=== PATIENT | female | born 1970 | race Caucasian/White ===

== ENCOUNTER 2018-12-30 10:14 | Inpatient (IN) ==
[2018-12-30] MEDS ORDERED: Albuterol 2.5 MG/3 ML NEBULIZER IH PRN (10:28)
[2018-12-30] MEDS ORDERED: CeFAZolin Syr 2,000MG/20 ML 2,000 MG/20 ML SYRINGE IVPB ONE (10:28)
[2018-12-30] MEDS ORDERED: Ringers Solution, Lactated 1,000 ML IVC SCH ×2 (10:30→15:21)
[2018-12-30] MEDS ORDERED: *HR* FentaNYL (PF) 100 MCG/2 ML VIAL ONE (10:58)
[2018-12-30] MEDS ORDERED: *HR* Midazolam HCl 2 MG/2 ML VIAL ONE (10:59)
[2018-12-30] MEDS ORDERED: Celecoxib 200 MG CAPSULE PO ONE (11:05)
[2018-12-30] MEDS ORDERED: Gabapentin 300 MG CAPSULE PO ONE (11:05)
[2018-12-30] MEDS ORDERED: *HR* OxyCODONE Immed Rel 5 MG TABLET PO PRN (11:11)
[2018-12-30] MEDS ORDERED: Ondansetron 4 MG/2 ML VIAL IVP ONE (11:11)
[2018-12-30] MEDS ORDERED: *HR* Promethazine 25 MG/ML VIAL IVP PRN ×2 (11:11→15:21)
[2018-12-30] MEDS ORDERED: Ropivacaine/PF 0.5% 30 ML VIAL ONE (11:27)
[2018-12-30] MEDS ORDERED: Ethanol\\Acetic Acid\\Na Ace\\Ben 1,000 ML IRRIG.SOLN IR ONE (11:36)
[2018-12-30] MEDS ORDERED: Tranexamic Acid 1,000 MG/10 ML VIAL ONE (12:39)
[2018-12-30] MEDS ORDERED: Propofol 500 MG/50 ML INFUS..BTL ONE (12:40)
[2018-12-30] MEDS ORDERED: Dexamethasone 4 MG/ML VIAL ONE (12:49)
[2018-12-30] MEDS ORDERED: Ondansetron 4 MG/2 ML VIAL ONE (12:49)
[2018-12-30] MEDS: *HR* HYDROmorphone (PF) 1 MG/ML SYRINGE IVP PRN ×2 (14:10→14:17)
[2018-12-30 14:41] LABS: Hemoglobin 11.4 g/dL (11.5-15.4)
[2018-12-30] MEDS ORDERED: Ipratropium/Albuterol Neb 3 ML IH PRN (15:21)
[2018-12-30] MEDS ORDERED: Temazepam 15 MG CAPSULE PO PRN (15:21)
[2018-12-30] MEDS ORDERED: Fluticasone Propionate Nasal 50 MCG/SPRAY BOTTLE NS PRN (15:21)
[2018-12-30] MEDS ORDERED: MOM Conc 10 ML UD.LIQ PO PRN (15:21)
[2018-12-30] MEDS ORDERED: Sennosides 8.6 MG TABLET PO PRN (15:21)
[2018-12-30] MEDS ORDERED: traZODone 50 MG TABLET PO PRN (15:21)
[2018-12-30] MEDS ORDERED: Naloxone 0.4 MG/ML INJ IVP PRN (15:21)
[2018-12-30] MEDS ORDERED: Ondansetron 4 MG/2 ML VIAL IVP PRN (15:21)
[2018-12-30] MEDS ORDERED: traMADol 50 MG TABLET PO PRN (15:21)
[2018-12-30] MEDS: HYDROcodone BIT/Homatropine 5 MG TABLET PO PRN (16:33)
[2018-12-30] MEDS: Ascorbic Acid 500 MG TABLET PO SCH (16:35)
[2018-12-30] MEDS ORDERED: ARIPiprazole 10 MG TABLET PO SCH (18:00)
[2018-12-30] MEDS ORDERED: Loratadine 10 MG TABLET PO SCH (18:00)
[2018-12-30] MEDS: Gabapentin 300 MG CAPSULE PO SCH ×2 (18:13→21:31)
[2018-12-30] MEDS: *HR* OxyCODONE Immed Rel 5 MG TABLET PO PRN (21:30)
[2018-12-30] MEDS: Budesonide/Formoterol 160/4.5 1 PUFF INH IH SCH (21:38)
[2018-12-31] MEDS: *HR* OxyCODONE Immed Rel 5 MG TABLET PO PRN ×2 (02:22→08:49)
[2018-12-31] MEDS: HYDROcodone BIT/Homatropine 5 MG TABLET PO PRN ×2 (05:08→10:59)
[2018-12-31 05:23] LABS: Basophils % 0.1 %; Hematocrit 29.7 % (35.3-44.9); Hemoglobin 10.1 g/dL (11.5-15.4); Immature Granulocytes % 0.3 % (0-4); Lymphocytes # 0.9 K/mcL (0.6-4.6); Lymphocytes % 8.3 %; Mean Corpuscular Hemoglobin 32.2 pg (28.0-33.3); Mean Corpuscular Volume 94.6 fL (83.0-100.0); Mean Platelet Volume 9.1 fL (9.4-12.4); Monocytes # 0.7 K/mcL (0.0-1.3); Monocytes % 6.1 %; Neutrophils # 9.2 K/mcL (1.6-8.9); Platelet Count 289 K/mcL (140-400); Red Blood Count 3.14 M/mcL (3.82-4.97); Red Cell Distribution Width 15.3 % (11.5-14.5); Segmented Neutrophils % 85.2 %; White Blood Count 10.7 K/mcL (4.3-11.1)
[2018-12-31 05:43] LABS: BUN/Creatinine Ratio 11 (6-26); Blood Urea Nitrogen 7 mg/dL (6-20); Calcium 8.7 mg/dL (8.6-10.3); Carbon Dioxide 28 mEq/L (23-29); Chloride 107 mEq/L (98-107); Glucose 135 mg/dL (70-105); Osmolality,Calculated 298 (280-300); Potassium 2.9 mEq/L (3.5-5.1); Sodium 144 mEq/L (136-145); eGFR For African Americans > 60 (> 60); eGFR For Non-African Americans > 60 (> 60)
[2018-12-31] MEDS ORDERED: *HR* Enoxaparin 30 MG/0.3 ML SYRINGE SQ SCH ×2 (06:00→11:13)
[2018-12-31] MEDS: Gabapentin 300 MG CAPSULE PO SCH (08:49)
[2018-12-31] MEDS: Ascorbic Acid 500 MG TABLET PO SCH (08:49)
[2018-12-31] MEDS ORDERED: hydroCHLOROthiazide 25 MG TABLET PO SCH (09:00)
[2018-12-31] MEDS ORDERED: Multivit/Ca/Min/Fe/FA 1 TAB TABLET PO SCH (09:00)
[2018-12-31] MEDS ORDERED: Tiotropium 18 MCG inhalation IH SCH (10:00)
[2018-12-31] MEDS: Budesonide/Formoterol 160/4.5 1 PUFF INH IH SCH (10:31)
[2018-12-31 10:59] VITALS: BP 126/74
== END 2018-12-31 12:35 | disposition home or self-care (01) | DRG 301 ==
LOC: SAMDAY 10:14 → 3NENU 15:18
PROVIDERS: ADMIT Orthopaedic Surgery; ATTEND Orthopaedic Surgery

== ENCOUNTER 2019-02-12 06:09 | Inpatient (IN) ==
[2019-02-12] MEDS ORDERED: Albuterol 2.5 MG/3 ML NEBULIZER IH PRN (06:22)
[2019-02-12] MEDS ORDERED: CeFAZolin Syr 2,000MG/20 ML 2,000 MG/20 ML SYRINGE IVPB ONE (06:22)
[2019-02-12] MEDS ORDERED: Ringers Solution, Lactated 1,000 ML IVC SCH ×2 (06:30→09:54)
[2019-02-12] MEDS ORDERED: Acetaminophen IV 1,000 MG/100 ML INFUS..BTL IVPB ONE (07:00)
[2019-02-12] MEDS ORDERED: *HR* Meperidine 25 MG/ML SYRINGE IVP PRN (07:00)
[2019-02-12] MEDS ORDERED: *HR* HYDROmorphone (PF) 1 MG/ML SYRINGE IVP PRN (07:00)
[2019-02-12] MEDS ORDERED: *HR* Promethazine 25 MG/ML VIAL IVP PRN ×2 (07:00→09:54)
[2019-02-12] MEDS ORDERED: *HR* FentaNYL (PF) 100 MCG/2 ML VIAL IVP PRN (07:00)
[2019-02-12] MEDS ORDERED: *HR* Midazolam HCl 2 MG/2 ML VIAL IVP PRN (07:00)
[2019-02-12] MEDS ORDERED: *HR* OxyCODONE Immed Rel 5 MG TABLET PO PRN (07:00)
[2019-02-12] MEDS ORDERED: Propofol 500 MG/50 ML INFUS..BTL ONE (07:03)
[2019-02-12] MEDS ORDERED: Lidocaine -MPF 2% 2 ML VIAL ONE (07:03)
[2019-02-12] MEDS ORDERED: Ethanol\\Acetic Acid\\Na Ace\\Ben 1,000 ML IRRIG.SOLN IR ONE (07:22)
[2019-02-12] MEDS ORDERED: EPHEDrine 50 MG/ML VIAL ONE (08:17)
[2019-02-12] MEDS ORDERED: Tranexamic Acid 1,000 MG/10 ML VIAL ONE (08:17)
[2019-02-12] MEDS ORDERED: *HR* PHENYLEPHRINE 1,000 MCG/10 ML SYRINGE IVP ONE (08:28)
[2019-02-12 09:29] LABS: Hemoglobin 10.3 g/dL (11.5-15.4)
[2019-02-12] MEDS ORDERED: traZODone 50 MG TABLET PO PRN (09:54)
[2019-02-12] MEDS ORDERED: Fluticasone Propionate Nasal 50 MCG/SPRAY BOTTLE NS PRN (09:54)
[2019-02-12] MEDS ORDERED: Temazepam 15 MG CAPSULE PO PRN (09:54)
[2019-02-12] MEDS ORDERED: Ondansetron 4 MG/2 ML VIAL IVP PRN (09:54)
[2019-02-12] MEDS ORDERED: Sennosides 8.6 MG TABLET PO PRN (09:54)
[2019-02-12] MEDS ORDERED: MOM Conc 10 ML UD.LIQ PO PRN (09:54)
[2019-02-12] MEDS ORDERED: hydrOXYzine pamoate 25 MG CAPSULE PO PRN (09:54)
[2019-02-12] MEDS ORDERED: Naloxone 0.4 MG/ML INJ IVP PRN (09:54)
[2019-02-12] MEDS: Gabapentin 300 MG CAPSULE PO SCH ×3 (10:24→21:00)
[2019-02-12] MEDS: HYDROcodone BIT/Homatropine 5 MG TABLET PO PRN ×3 (10:24→21:02)
[2019-02-12] MEDS: Multivit/Ca/Min/Fe/FA 1 TAB TABLET PO SCH (10:24)
[2019-02-12] MEDS: hydroCHLOROthiazide 25 MG TABLET PO SCH (10:25)
[2019-02-12] MEDS: Ketorolac 30 MG/ML VIAL IVP SCH ×2 (12:02→17:19)
[2019-02-12] MEDS: Acetaminophen IV 1,000 MG/100 ML INFUS..BTL IVPB SCH ×2 (13:05→17:18)
[2019-02-12] MEDS: *HR* OxyCODONE Immed Rel 5 MG TABLET PO PRN ×2 (13:05→18:18)
[2019-02-12] MEDS: Nicotine 14 MG PATCH.TD24 TD SCH (14:38)
[2019-02-12] MEDS ORDERED: Ipratropium/Albuterol Neb 3 ML IH PRN (16:00)
[2019-02-12] MEDS: Ascorbic Acid 500 MG TABLET PO SCH (17:19)
[2019-02-12] MEDS ORDERED: ARIPiprazole 10 MG TABLET PO SCH (18:00)
[2019-02-12] MEDS ORDERED: Loratadine 10 MG TABLET PO SCH (18:00)
[2019-02-12] MEDS: Budesonide/Formoterol 160/4.5 1 PUFF INH IH SCH (23:11)
[2019-02-13] MEDS: Acetaminophen IV 1,000 MG/100 ML INFUS..BTL IVPB SCH (00:28)
[2019-02-13] MEDS: Ketorolac 30 MG/ML VIAL IVP SCH (00:28)
[2019-02-13] MEDS: *HR* OxyCODONE Immed Rel 5 MG TABLET PO PRN ×3 (00:40→14:27)
[2019-02-13] MEDS: HYDROcodone BIT/Homatropine 5 MG TABLET PO PRN ×2 (03:53→12:47)
[2019-02-13 07:04] LABS: Basophils % 0.5 %; Eosinophils # 0.3 K/mcL (0.0-0.6); Eosinophils % 4.3 %; Hematocrit 30.5 % (35.3-44.9); Hemoglobin 9.7 g/dL (11.5-15.4); Immature Granulocytes % 0.2 % (0-4); Lymphocytes % 31.1 %; Mean Corpuscular HGB Conc 31.8 g/dL (31.6-35.5); Mean Corpuscular Hemoglobin 31.3 pg (28.0-33.3); Mean Corpuscular Volume 98.4 fL (83.0-100.0); Mean Platelet Volume 9.6 fL (9.4-12.4); Monocytes # 0.5 K/mcL (0.0-1.3); Monocytes % 7.2 %; Neutrophils # 3.7 K/mcL (1.6-8.9); Platelet Count 276 K/mcL (140-400); Red Cell Distribution Width 14.2 % (11.5-14.5); Segmented Neutrophils % 56.7 %; White Blood Count 6.5 K/mcL (4.3-11.1)
[2019-02-13 07:24] LABS: BUN/Creatinine Ratio 9 (6-26); Blood Urea Nitrogen 7 mg/dL (6-20); Calcium 8.8 mg/dL (8.6-10.3); Carbon Dioxide 28 mEq/L (23-29); Chloride 105 mEq/L (98-107); Glucose 102 mg/dL (70-105); Osmolality,Calculated 290 (280-300); Potassium 3.2 mEq/L (3.5-5.1); Sodium 141 mEq/L (136-145); eGFR For African Americans > 60 (> 60); eGFR For Non-African Americans > 60 (> 60)
[2019-02-13] MEDS ORDERED: *HR* Enoxaparin 30 MG/0.3 ML SYRINGE SQ SCH (07:27)
[2019-02-13] MEDS: Budesonide/Formoterol 160/4.5 1 PUFF INH IH SCH (07:55)
[2019-02-13] MEDS: Nicotine 14 MG PATCH.TD24 TD SCH (08:17)
[2019-02-13] MEDS: Aspirin Enteric Coated 81 MG Tablet PO SCH ×2 (08:17→13:27)
[2019-02-13] MEDS: Gabapentin 300 MG CAPSULE PO SCH (08:17)
[2019-02-13] MEDS: Ascorbic Acid 500 MG TABLET PO SCH (08:18)
[2019-02-13] MEDS: Multivit/Ca/Min/Fe/FA 1 TAB TABLET PO SCH (08:18)
[2019-02-13] MEDS: hydroCHLOROthiazide 25 MG TABLET PO SCH (08:18)
[2019-02-13] MEDS ORDERED: Tiotropium 18 MCG inhalation IH SCH (10:00)
[2019-02-13 13:03] VITALS: BP 113/74
== END 2019-02-13 15:00 | disposition home or self-care (01) | DRG 301 ==
LOC: SAMDAY 06:09 → 3NENU 09:54
PROVIDERS: ADMIT Orthopaedic Surgery; ATTEND Orthopaedic Surgery

== ENCOUNTER 2019-06-22 23:28 | Observation (INO) ==
[2019-06-23] MEDS ORDERED: Ketorolac 15 MG/ML VIAL IVP ONE (00:06)
[2019-06-23] MEDS ORDERED: Prochlorperazine 10 MG/2 ML VIAL IVP ONE (00:06)
[2019-06-23 00:12] LABS: Basophils % 0.6 %; Mean Corpuscular HGB Conc 33.3 g/dL (31.6-35.5); Mean Corpuscular Hemoglobin 31.5 pg (28.0-33.3); Mean Corpuscular Volume 94.4 fL (83.0-100.0); Mean Platelet Volume 9.5 fL (9.4-12.4); Monocytes # 0.1 K/mcL (0.0-1.3); Platelet Count 279 K/mcL (140-400); Red Blood Count 4.13 M/mcL (3.82-4.97); Red Cell Distribution Width 15.8 % (11.5-14.5); Segmented Neutrophils % 83.4 %; White Blood Count 7.2 K/mcL (4.3-11.1)
[2019-06-23 00:23] LABS: BUN/Creatinine Ratio 12 (6-26); Blood Urea Nitrogen 10 mg/dL (6-20); Calcium 8.5 mg/dL (8.6-10.3); Carbon Dioxide 17 mEq/L (23-29); Chloride 113 mEq/L (98-107); Glucose 140 mg/dL (70-105); Osmolality,Calculated 291 (280-300); Potassium 3.5 mEq/L (3.5-5.1); Sodium 140 mEq/L (136-145); eGFR For African Americans > 60 (> 60); eGFR For Non-African Americans > 60 (> 60)
[2019-06-23 00:42] LABS: Platelet Estimate Normal (Normal); Reactive Lymphocytes Present (Not Present)
[2019-06-23] MEDS ORDERED: Ketamine *HR* 13 MG in 0.9 % Sodium Chloride 100 ML IVPB ONE (02:02)
[2019-06-23] MEDS ORDERED: Naloxone 0.4 MG/ML INJ IVP PRN (03:44)
[2019-06-23] MEDS ORDERED: 0.9 % Sodium Chloride 1,000 ML IVC SCH (04:15)
[2019-06-23] MEDS: Nicotine 21 MG PATCH.TD24 TD PRN ×2 (04:44→21:38)
[2019-06-23 05:07] LABS: Basophils % 0.3 %; Hematocrit 39.3 % (35.3-44.9); Hemoglobin 12.8 g/dL (11.5-15.4); Immature Granulocytes % 0.5 % (0-4); Lymphocytes # 0.9 K/mcL (0.6-4.6); Lymphocytes % 15.2 %; Mean Corpuscular HGB Conc 32.6 g/dL (31.6-35.5); Mean Corpuscular Hemoglobin 30.3 pg (28.0-33.3); Mean Corpuscular Volume 93.1 fL (83.0-100.0); Mean Platelet Volume 9.6 fL (9.4-12.4); Monocytes # 0.1 K/mcL (0.0-1.3); Monocytes % 1.8 %; Platelet Count 310 K/mcL (140-400); Red Blood Count 4.22 M/mcL (3.82-4.97); Red Cell Distribution Width 15.7 % (11.5-14.5); Segmented Neutrophils % 82.2 %; White Blood Count 6.1 K/mcL (4.3-11.1)
[2019-06-23 05:25] LABS: BUN/Creatinine Ratio 12 (6-26); Blood Urea Nitrogen 9 mg/dL (6-20); Carbon Dioxide 19 mEq/L (23-29); Chloride 113 mEq/L (98-107); Glucose 148 mg/dL (70-105); Magnesium 2.4 mg/dL (1.6-2.6); Osmolality,Calculated 289 (280-300); Phosphorous 2.9 mg/dL (2.7-4.5); Potassium 4.2 mEq/L (3.5-5.1); Sodium 139 mEq/L (136-145); eGFR For African Americans > 60 (> 60); eGFR For Non-African Americans > 60 (> 60)
[2019-06-23 05:45] LABS: Thyroid Stimulating Hormone 0.287 mcIU/mL (0.340-5.600)
[2019-06-23 05:56] LABS: Estimated Average Glucose 126 mg/dl
[2019-06-23] MEDS ORDERED: Ketorolac 15 MG/ML VIAL IVP SCH (06:00)
[2019-06-23] MEDS ORDERED: Ketorolac 15 MG/ML VIAL IVP PRN ×2 (06:15→06:19)
[2019-06-23] MEDS: Acetaminophen 325 MG TABLET PO SCH ×2 (06:25→12:00)
[2019-06-23] MEDS ORDERED: Ondansetron 4 MG/2 ML VIAL IVP PRN (06:45)
[2019-06-23 08:40] LABS: Bilirubin,Urine Negative (Negative); Blood,Urine Moderate (Negative); Color,Urine Yellow (Yellow); Glucose,Urine (UA) Normal (Normal); Ketones,Urine Negative (Negative); Leukocyte Esterase,Urine Trace (Negative); Nitrite,Urine Negative (Negative); Protein,Urine Negative (Neg-Trace); Specific Gravity,Urine 1.009 (1.010-1.025); Urobilinogen,Urine Normal (Normal)
[2019-06-23 08:41] LABS: Potassium,Urine 18.3 mEq/L
[2019-06-23 08:43] LABS: Bacteria,Urine Moderate per hpf (None-Few); Hyaline Casts,Urine None Seen per lpf (None-Few); Squamous Epithelial Cell,Urine None Seen per lpf (None-Few); WBC,Urine 0-3 per hpf (0-3)
[2019-06-23 08:44] LABS: Clarity,Urine Slightly Hazy (Clear)
[2019-06-23 08:52] LABS: RBC,Urine 0-3 per hpf (0-3)
[2019-06-23 09:55] LABS: Triiodothyronine (T3) Total 0.89 ng/mL (0.87-1.78)
[2019-06-23] MEDS ORDERED: Ketorolac 30 MG/ML VIAL IVP ONE (11:05)
[2019-06-23] MEDS ORDERED: Metoclopramide 10 MG/2 ML VIAL IVP ONE (11:05)
[2019-06-23] MEDS ORDERED: MethylPREDNISolone 40 MG/ML VIAL IVP ONE (11:05)
[2019-06-23] MEDS ORDERED: Isovue-370 500 ML BOTTLE IVP ONE (11:06)
[2019-06-23] MEDS ORDERED: Gadolinium Contrast Agent (WT Based) IV PRN (13:41)
[2019-06-23] MEDS ORDERED: Dextrose Gel 15 GM/37.5 ML TUBE PO PRN ×2 (14:06)
[2019-06-23] MEDS ORDERED: *HR* Dextrose 50 % in Water (Syg) 50 ML SYRINGE IVP PRN (14:06)
[2019-06-23] MEDS ORDERED: D5% in Water 1,000 ML IVC PRN (14:06)
[2019-06-23] MEDS: Insulin LISPRO 300 UNITS/3 ML VIAL SQ SCH (16:51)
[2019-06-23] MEDS: Ketorolac 30 MG/ML VIAL IVP PRN (17:59)
[2019-06-23] MEDS ORDERED: Insulin LISPRO 300 UNITS/3 ML VIAL SQ SCH (21:00)
[2019-06-24 01:44] LABS: BUN/Creatinine Ratio 12 (6-26); Blood Urea Nitrogen 12 mg/dL (6-20); Calcium 8.5 mg/dL (8.6-10.3); Carbon Dioxide 19 mEq/L (23-29); Chloride 114 mEq/L (98-107); Glucose 105 mg/dL (70-105); Magnesium 2.2 mg/dL (1.6-2.6); Osmolality,Calculated 292 (280-300); Phosphorous 3.6 mg/dL (2.7-4.5); Potassium 3.6 mEq/L (3.5-5.1); Sodium 141 mEq/L (136-145); eGFR For African Americans > 60 (> 60); eGFR For Non-African Americans 58 (> 60)
[2019-06-24] MEDS: Ketorolac 30 MG/ML VIAL IVP PRN ×2 (02:20→08:54)
[2019-06-24 07:20] VITALS: BP 145/72
[2019-06-24] MEDS: Insulin LISPRO 300 UNITS/3 ML VIAL SQ SCH (07:47)
[2019-06-24] MEDS ORDERED: Budesonide/Formoterol 160/4.5 1 PUFF INH IH PRN (09:05)
[2019-06-24] MEDS ORDERED: Fluticasone Propionate Nasal 50 MCG/SPRAY BOTTLE NS PRN (09:05)
[2019-06-24] MEDS ORDERED: Topiramate 25 MG TABLET PO SCH ×2 (09:15→21:00)
[2019-06-24] MEDS ORDERED: hydroCHLOROthiazide 25 MG TABLET PO SCH (09:15)
[2019-06-24] MEDS ORDERED: Pregabalin 50 MG CAPSULE PO SCH (09:15)
[2019-06-24] MEDS ORDERED: Furosemide 20 MG TABLET PO SCH (09:15)
[2019-06-24] MEDS ORDERED: Gabapentin 400 MG CAPSULE PO SCH (09:15)
[2019-06-24] MEDS ORDERED: Tiotropium 18 MCG inhalation IH SCH (10:00)
[2019-06-24] MEDS ORDERED: Loratadine 10 MG TABLET PO SCH (18:00)
[2019-06-24] MEDS ORDERED: ARIPiprazole 10 MG TABLET PO SCH (18:00)
[2019-06-24] MEDS ORDERED: traZODone 50 MG TABLET PO SCH (21:00)
== END 2019-06-24 12:13 | disposition home or self-care (01) ==
LOC: EMEROOARM 23:28 → 3BNU 23:28 → SUATTDRO 06-23 03:01 → 3BNU 06-23 03:20
PROVIDERS: ADMIT Internal Medicine; ATTEND Internal Medicine